=== PATIENT | female | born 1955 | race Two or more races ===

== ENCOUNTER 2019-11-11 10:02 | Outpatient (CLI) | payer OTHER | END 2019-11-11 10:15 | disposition home or self-care (01) | LOC: SONOGRAMA 10:02 | DX: N28.1 Cyst of kidney, acquired (principal) ==

== ENCOUNTER 2023-06-08 10:26 | Emergency (ER) | payer OTHER ==
[~2023-06-08] VITALS: Ht 160 cm; Wt 68.5 kg
[2023-06-08 13:09] LABS: HEMATOCRIT 43.6 % (36.0-45.00); HEMOGLOBIN 15.1 g/dL (12.0-15.00); MEAN CELL VOLUME 101.4 fL (80.00-100.00); MEAN CORPUSCULAR HEMOGLOBIN 35.1 pg (27.00-32.0); MEAN CORPUSCULAR HGB CONC 34.6 g/dl (32.0-36.0); PLATELET COUNT 146 K/uL (150-450); RED BLOOD COUNT 4.31 M/uL (4.00-6.00)
== END 2023-06-08 14:08 | disposition home or self-care (01) ==
LOC: ER 10:26
PROVIDERS: Emergency Medicine
DX: U07.1 COVID-19 (principal)